=== PATIENT | male | born 1985 | race Caucasian/White ===

== ENCOUNTER 2016-12-03 17:07 | Emergency (ER) | payer BC ==
[2016-12-03 17:20] VITALS: BMI 20.2
--- NOTE | 2016-12-03 18:04 | DR.GENAD ---
HPI - PCP Primary Care Physician: NFD - HPI Comment HPI Comment: PATIENT DIAGNOSE WITH GALL STONE IN [facility] AND WILL SEE GI WENESDAY. HE CONTINUE HAVING N/V AND ABDOMINAL PAIN. HE IS NOT HOLDING DOWN FOOD OR MEDICATION. HE IS A DIABETIC ON INSULIN PUMP. TODAY ALSO HAVING WEAKNESS. - Complaint/Symptoms Chief Complaint Doctors Comments: ABDOMINAL PAIN, NAUSEA AND VOMITING. Chief Complaint:: "MY STOMACH IS IN [place] AND I CAN'T EAT ANYTHING." Self Treatment fo Chief Complaint: PT HAS AN APPT WITH GI [facility] 12/05/16. TAKING PRILOSEC - Nurses notes reviewed Nurses Notes Review: Yes - Source History Provided: Patient - Mode of Arrival Mode of Arrival: Ambulatory - Timing Onset of Chief Complaint: 11/04/16 Came on: Suddenly - Duration Duration: Constant Duration: Days - Severity Severity: Moderate PMH - PMH Past Medical History: Yes Past Medical History: Diabetes Past Surgical History: Yes Surgical History: Other Past Surgical History Comment: HERNIA - Family History History of Family Medical Conditions: Yes Family Medical History: Diabetes Mellitus - Social History Does patient currently use any type of tobacco product: Yes Have you used tobacco products in the last 12 months: Yes Type of Tobacco Use: Cigarettes How many years tobacco product used: 6 Does any household member use tobacco: Yes Alcohol Use: None Do you use any recreational Drugs:: No Lives With: Family Lives Where: Home - infectious screening In the last 2 months have you had wt loss of >10#?: NO Have you had fever, night sweats or hemotysis?: No Have you traveled outside the country in the last 6 months?: No ROS - Review of Systems Constitutional: Weakness, Fatigue, Loss of Appetite. negative: Chills, Fever Eyes: No Symptoms Reported. negative: Eye Pain, Discharge ENTM: No Symptoms Reported. negative: Ear Pain, Nose Discharge, Nose Congestion , Throat Pain Respiratoy: No Symptoms Reported, Non-Productive Cough, Short of Breath. negative: Productive Cough, Wheezing, Hemoptysis Cardiovascular: Chest Pain Gastrointestinal/Abdominal: Abdominal Pain, Nausea, Vomiting. negative: Diarrhea Genitourinary: No Symptoms Reported. negative: Dysuria, Frequency, Hematuria Neurological: Weakness Musculoskeletal: Muscle Pain Integumentary: Dryness Hematologic/Lymphatic: No Symptoms Reported Endocrine: Increased Thirst, Increased Urine, Decreased Appetite. negative: Flushing All Other Systems: Reviewed and Negative PE - Vital Signs Vitals: Temperature 99.0 F Pulse Rate [Right Brachial] 78 Pulse Rate 106 Respiratory Rate 18 Blood Pressure [Left Arm] 119/84 Blood Pressure 132/86 O2 Sat by Pulse Oximetry 100 - General Limitations: No Limitations General Appearance: Alert - Head Head Exam: Normal Inspection - Eyes Eye exam: Normal Appearance - ENT ENT Exam: Normal External Ear Exam External Ear Exam: Normal External Inspection TM/Canal Exam: Bilateral Normal Nose Exam: Normal Nose Exam Mouth Exam: Normal Inspection Throat Exam: Normal Inspection - Neck Neck Exam: Trachea Midline - Chest Chest Inspection: Symmetric Chest Wall Rise - Respiratory Respiratory Exam: Normal Lung Sounds Bilat Respiratory Exam: Bilateral Clear to Auscultation - Cardiovascular Cardiovascular Exam: Regular Rate, Normal Rhythm, Normal Heart Sounds - Abdominal Exam Abdominal Exam: Normal Bowel Sounds, Soft, Tenderness Abdominal Tenderness: Diffuse, Moderate - Extremities Extremities Exam: Normal Inspection - Back Back Exam: Normal Inspection - Neurologic Neurological Exam: Alert, Oriented X3 - Skin Skin Exam: Dry MDM - Additional Information Additional Information Obtained From: Family - Differential Diagnosis Differential Diagnosis: ABDOMINAL PAIN, CHOLELITHIASIS, NAUSEA AND VOMITING, Course - Treatment Treatment: SEE ORDERS. NS 1L BOLUS IN ED AND IV ZOFRAN. PATIENT FEELING BETTER. - Reevaluation 1st: Resolved, Improved - Education/Counseling Education/Counseling: Patient, Family Educated On: Treatment, Diagnosis, Needs for Follow Up ROR - Labs Reviewed Laboratory Results Reviewed?: Yes Result Diagrams: 12/03/16 18:13 12/03/16 18:13 Laboratory: WBC 7.0 X10^3/uL (3.6-10.0) 12/03/16 18:13 RBC 5.43 X10^6/uL (4.7-6.0) 12/03/16 18:13 Hgb 16.8 g/dL (13.5-18.0) 12/03/16 18:13 Hct 47.2 % (42.0-54.0) 12/03/16 18:13 MCV 87.0 fL (80.0-100.0) 12/03/16 18:13 MCH 30.9 pg (27.0-34.0) 12/03/16 18:13 MCHC 35.5 g/dL (33.0-35.0) H 12/03/16 18:13 RDW 12.4 % (11.6-16.5) 12/03/16 18:13 Plt Count 212 X10^3/uL (150.0-450.0) 12/03/16 18:13 MPV 8.7 fL (7.4-11.0) 12/03/16 18:13 Neut % 55.6 % (42.0-75.0) 12/03/16 18:13 Lymph % 32.7 % (21.0-51.0) 12/03/16 18:13 [place] % 9.2 % (0.0-13.0) 12/03/16 18:13 Eos % 1.9 % (0.9-2.9) 12/03/16 18:13 Baso % 0.6 % (0.2-1.0) 12/03/16 18:13 Neut # 3.9 x10^3/uL (2.2-4.8) 12/03/16 18:13 Lymph # 2.3 X10^3/uL (1.3-2.9) 12/03/16 18:13 [place] # 0.6 x10^3/uL (0.3-0.8) 12/03/16 18:13 Eos # 0.1 x10^3/uL (0.0-0.2) 12/03/16 18:13 Baso # 0.0 X10^3/uL (0.0-0.1) 12/03/16 18:13 Absolute Nucleated RBC 0.1 /100WBC 12/03/16 18:13 Sodium 137 mmol/L (136-145) 12/03/16 18:13 Corrected Sodium 139 mmol/L (136-145) 12/03/16 18:13 Potassium 3.7 mmol/L (3.5-5.1) 12/03/16 18:13 Chloride 99 mmol/L (98-107) 12/03/16 18:13 Carbon Dioxide 32.4 mmol/L (21-32) H 12/03/16 18:13 BUN 16 mg/dL (7-18) 12/03/16 18:13 Creatinine 0.88 mg/dL (0.70-1.30) 12/03/16 18:13 Est GFR (MDRD) Af Amer > 60 (>60) 12/03/16 18:13 Est GFR (MDRD) Non-Af > 60 (>60) 12/03/16 18:13 Glucose 181 mg/dL (65-99) H 12/03/16 18:13 Calcium 9.4 mg/dL (8.5-10.1) 12/03/16 18:13 Corrected Calcium TNP 12/03/16 18:13 Total Bilirubin 0.40 mg/dL (0.2-1.0) 12/03/16 18:13 AST 9 Units/L (15-37) L 12/03/16 18:13 ALT 18 Units/L (12-78) 12/03/16 18:13 Alkaline Phosphatase 117 Units/L (46-116) H 12/03/16 18:13 Total Protein 7.2 g/dL (6.4-8.2) 12/03/16 18:13 Albumin 4.0 g/dL (3.4-5.0) 12/03/16 18:13 Globulin 3.2 g/dL (2.5-4.5) 12/03/16 18:13 Albumin/Globulin Ratio 1.3 Ratio (1.1-2.1) 12/03/16 18:13 Amylase 31 Units/L (25-115) 12/03/16 18:13 Lipase 60 Units/L (73-393) L 12/03/16 18:13 Specimen Type Clean catch urine 12/03/16 18:18 Urine Color Yellow (YELLOW) 12/03/16 18:18 Urine Appearance Clear (CLEAR) 12/03/16 18:18 Urine pH 5.0 (5.0 - 8.0) 12/03/16 18:18 Ur Specific [place] 1.025 (1.000-1.030) 12/03/16 18:18 Urine Protein 2+ (NEGATIVE) 12/03/16 18:18 Urine Glucose (UA) 4+ (NEGATIVE) 12/03/16 18:18 Urine Ketones 2+ (NEGATIVE) 12/03/16 18:18 Urine Occult Blood Negative (NEGATIVE) 12/03/16 18:18 Urine Nitrite Negative (NEGATIVE) 12/03/16 18:18 Urine Bilirubin Negative (NEGATIVE) 12/03/16 18:18 Urine Urobilinogen Normal (NORMAL) 12/03/16 18:18 Ur Leukocyte Esterase Negative (NEGATIVE) 12/03/16 18:18 Urine RBC 0-1 /HPF (NEGATIVE) 12/03/16 18:18 Urine WBC 0-1 /HPF (NEGATIVE) 12/03/16 18:18 Ur Squamous Epith Cells Negative /HPF (NEGATIVE) 12/03/16 18:18 Amorphous Sediment 1+ /HPF (NEGATIVE) 12/03/16 18:18 Urine Bacteria Trace /HPF (NEGATIVE) 12/03/16 18:18 Urine Mucus Moderate /HPF (NEGATIVE) 12/03/16 18:18 Ur Culture Indicated? No/not indicated 12/03/16 18:18 Acetone, Semi-Quant Negative (NEGATIVE) 12/03/16 18:13 - XRAY XRAY Interpreted by: Radiologist XRAY Findings: REPORT DISCUSS WITH PATIENT. - Diagnosis Discharge Problem: Gall stones, Dehydration, Hyperglycemia Abdominal pain Qualifiers: Abdominal location: generalized Qualified Code(s): R10.84 - Generalized abdominal pain - Discharge Plan Disposition: 01 HOME, SELF-CARE Condition: Stable Prescriptions: Ondansetron HCl [Zofran Tab 4 mg] 4 mg PO Q6H PRN #12 tab PRN Reason: Nausea/Vomiting - Follow ups/Referrals Follow ups/Referrals: NFD,None [Primary Care Provider] - 1 day - Instructions Instructions: Abdominal Pain, Adult, [id number], Cholelithiasis, Dehydration , Adult, [id number] Additional Instructions: RETURN TO ED IF WORSE. SEE GI DOCTOR SCHEDULE
[2016-12-03] MEDS ORDERED: NS 1000 ML 1,000 ML IV ONE (18:08)
[2016-12-03] MEDS ORDERED: PEPCID 20 MG IV PREMIX* 20 MG/50 ML BAG IV ONE ×2 (18:09→18:15)
[2016-12-03] MEDS ORDERED: ZOFRAN INJ 4 MG VIAL IVP ONE ×2 (18:09→20:03)
[2016-12-03] MEDS ORDERED: TORADOL 30 MG VIAL IM ONE (18:10)
[2016-12-03] MEDS ORDERED: NS 1000 ML 1,000 ML ONE (18:15)
[2016-12-03] MEDS ORDERED: ZOFRAN INJ 4 MG VIAL ONE ×2 (18:15→20:07)
[2016-12-03] MEDS ORDERED: TORADOL 30 MG VIAL ONE (18:16)
[2016-12-03 18:25] LABS: BASOPHILS % (AUTO) 0.6 % (0.2-1.0); EOSINOPHILS # (AUTO) 0.1 x10^3/uL (0.0-0.2); EOSINOPHILS % (AUTO) 1.9 % (0.9-2.9); HEMATOCRIT 47.2 % (42.0-54.0); HEMOGLOBIN 16.8 g/dL (13.5-18.0); LYMPHOCYTES # (AUTO) 2.3 X10^3/uL (1.3-2.9); LYMPHOCYTES % (AUTO) 32.7 % (21.0-51.0); MEAN CORPUSCULAR HEMOGLOBIN 30.9 pg (27.0-34.0); MEAN CORPUSCULAR HGB CONC 35.5 g/dL (33.0-35.0); MEAN PLATELET VOLUME 8.7 fL (7.4-11.0); MONOCYTES # (AUTO) 0.6 x10^3/uL (0.3-0.8); MONOCYTES % (AUTO) 9.2 % (0.0-13.0); NEUTROPHILS # (AUTO) 3.9 x10^3/uL (2.2-4.8); NEUTROPHILS % (AUTO) 55.6 % (42.0-75.0); PLATELET COUNT 212 X10^3/uL (150.0-450.0); RED BLOOD COUNT 5.43 X10^6/uL (4.7-6.0); RED CELL DISTRIBUTION WIDTH 12.4 % (11.6-16.5)
[2016-12-03 18:26] LABS: BILIRUBIN,URINE NEGATIVE (NEGATIVE); BLOOD/HEMOGLOBIN,URINE NEGATIVE (NEGATIVE); GLUCOSE, URINE 4+ (NEGATIVE); KETONES,URINE 2+ (NEGATIVE); LEUKOCYTE ESTERASE ,URINE NEGATIVE (NEGATIVE); NITRITES,URINE NEGATIVE (NEGATIVE); PROTEIN,URINE 2+ (NEGATIVE); UROBILINOGEN,URINE NORMAL (NORMAL)
[2016-12-03 18:33] LABS: ALANINE AMINOTRANSFERASE 18 Units/L (12-78); ALKALINE PHOSPHATASE 117 Units/L (46-116); AMYLASE 31 Units/L (25-115); ASPARTATE AMINO TRANSFERASE 9 Units/L (15-37); BLOOD UREA NITROGEN 16 mg/dL (7-18); CALCIUM 9.4 mg/dL (8.5-10.1); CARBON DIOXIDE 32.4 mmol/L (21-32); CHLORIDE 99 mmol/L (98-107); COR NA(FOR HYPERGLY) 139 mmol/L (136-145); CREATININE 0.88 mg/dL (0.70-1.30); GLUCOSE 181 mg/dL (65-99); LIPASE 60 Units/L (73-393); SODIUM 137 mmol/L (136-145); TOTAL PROTEIN 7.2 g/dL (6.4-8.2); eGFR BLACK RACES > 60 (>60); eGFR NON BLACK RACES > 60 (>60)
[2016-12-03 18:34] LABS: AMORPHOUS SEDIMENT,UR 1+ /HPF (NEGATIVE); APPEARANCE,URINE CLEAR (CLEAR); BACTERIA,URINE TRACE /HPF (NEGATIVE); COLOR,URINE YELLOW (YELLOW); MUCUS,URINE MODERATE /HPF (NEGATIVE); RBC,URINE 0-1 /HPF (NEGATIVE); SQUAMOUS EPITHELIAL CELL,UR NEGATIVE /HPF (NEGATIVE)
--- NOTE | 2016-12-03 18:56 | RAD ---
HISTORY: Abdominal pain. Right upper quadrant pain. Study: Acute abdominal series Comparison: None. Findings: The trachea is midline. The cardiac silhouette is unremarkable. The lungs are clear without focal i nfiltrate or effusion. The bony thorax is unremarkable. Flat plate and upright evaluation of the abdomen demonstrates a normal bowel gas pattern. No patholo gical soft tissue mass or calcification can be observed. The bony structures are grossly intact. IMPRESSION: 1. No acute cardiopulmonary disease. 2. No evidence for acute abdominal pathology identified. Reported By:
[2016-12-03 20:19] VITALS: BP 119/84
== END 2016-12-03 20:20 | disposition home or self-care (01) ==
LOC: ER 17:27
DX: E86.0 Dehydration (principal); K56.3 Gallstone ileus; R10.84 Generalized abdominal pain; R73.9 Hyperglycemia, unspecified
CPT/HCPCS: 36415; 74022; 80053; 81001; 82009; 82150; 83690; 85025; 96365; 96367; 96374; 96375; 99283; A4222; S0028; J1885; J2405